=== PATIENT | female | born 1980 | race Caucasian/White ===

== ENCOUNTER 2025-01-14 19:03 | Emergency (ER) | payer MEDICARE, MEDICAID ==
[~2025-01-14] VITALS: Ht 165.1 cm; Wt 105.0 kg
[2025-01-14 19:05] VITALS: BP 129/81; PULSE 87; RESP 16; TEMP 36.3; O2SAT 98
== END 2025-01-14 20:56 | disposition home or self-care (01) ==
LOC: ER 19:03
DX: M25.561 Pain in right knee (principal); M25.552 Pain in left hip; G89.29 Other chronic pain; F31.9 Bipolar disorder, unspecified
CPT/HCPCS: 99283